=== PATIENT | female | born 1990 | race Caucasian/White ===

== ENCOUNTER 2017-08-06 15:18 | Emergency (ER) | payer BC ==
[~2017-08-06] VITALS: Ht 177.8 cm; Wt 68.6 kg
[2017-08-06] MEDS ORDERED: TOPIRAMATE100 MG PO (16:22)
[2017-08-06] MEDS ORDERED: TOPIRAMATE200 MG PO (16:23)
[2017-08-06] MEDS ORDERED: PHENOBARBITAL32.4 MG PO (16:24)
[2017-08-06] MEDS ORDERED: PHENOBARBITAL64.8 MG PO (16:24)
[2017-08-06] MEDS ORDERED: ZITHROMAX250 MG PO (17:15)
[2017-08-06] MEDS ORDERED: ZOFRAN ODT4 MG PO (17:15)
[2017-08-06] MEDS ORDERED: VENTOLIN HFA18 GM IH (17:15)
[2017-08-06] MEDS ORDERED: PERMETHRIN118 ML TP (17:16)
[2017-08-06 17:25] VITALS: BP 101/72
== END 2017-08-06 17:26 | disposition home or self-care (01) ==
LOC: EME 15:18
DX: J18.9 Pneumonia, unspecified organism (principal); B86 Scabies; F17.200 Nicotine dependence, unspecified, uncomplicated; R11.2 Nausea with vomiting, unspecified; R19.7 Diarrhea, unspecified
CPT/HCPCS: 71020; 94640; 99281; 99284

== ENCOUNTER 2017-08-08 07:32 | Emergency (ER) | payer BC ==
[~2017-08-08] VITALS: Ht 177.8 cm; Wt 68.9 kg
[~2017-08-08 07:32] MED LIST: PERMETHRIN118 ML TP; PHENOBARBITAL32.4 MG PO; PHENOBARBITAL64.8 MG PO; TOPIRAMATE100 MG PO; TOPIRAMATE200 MG PO; VENTOLIN HFA18 GM IH; ZITHROMAX250 MG PO; ZOFRAN ODT4 MG PO
[2017-08-08] MEDS ORDERED: TESSALON200 MG PO (08:05)
[2017-08-08] MEDS ORDERED: TUSSIONEX PENN473 ML PO (08:05)
[2017-08-08] MEDS ORDERED: TOPAMAX100 MG PO (08:37)
[2017-08-08 09:00] VITALS: BP 97/74
== END 2017-08-08 09:06 | disposition home or self-care (01) ==
LOC: EME 07:32
DX: J18.9 Pneumonia, unspecified organism (principal); R11.0 Nausea; F17.200 Nicotine dependence, unspecified, uncomplicated
CPT/HCPCS: 99281; 99284